=== PATIENT | male | born 1995 | race Caucasian/White ===

== ENCOUNTER 2016-07-13 09:18 | Observation (INO) ==
[2016-07-13] MEDS ORDERED: 0.9 % Sodium Chloride 1,000 ML IV ONE ×2 (09:46→11:03)
[2016-07-13] MEDS ORDERED: Ondansetron 4 MG/2 ML VIAL IV ONE (09:46)
[2016-07-13] MEDS ORDERED: Insulin Regular, Human 100 UNIT/ML IV ONE (09:48)
--- NOTE | 2016-07-13 09:50 | Emergency Department Note ---
Disposition Clinical Impression: DKA (diabetic ketoacidoses) Qualifiers: Diabetes mellitus type: type 1 Diabetes mellitus complication detail: without coma Qualified Code(s): E10.10 - Type 1 diabetes mellitus with ketoacidosis without coma Disposition: Admitted As Inpatient Condition: Fair Referrals: Zheng Burt MD [Primary Care Provider] - Forms: ED Satisfaction Letter Time of Disposition: 13:08 General Adult HPI - General Chief complaint: ED Nausea/Vomiting/Diarrhea Time Seen by Provider: 07/13/16 09:45 Source: patient, family Limitations: no limitations Nursing Notes Reviewed: Yes Vital Signs Reviewed: Yes - History of Present Illness HPI Narrative: 20-year-old with a history of nausea vomiting. This started 6 hours prior to presentation. His mother took his Accu-Chek and it was over 500. Patient is a history of DKA multiple times due to noncompliance. He complains of abdominal cramping. Pain Scale: 0 - Related Data Home Medications Medication Instructions Recorded Confirmed Insulin ASPART [NovoLOG] 0 unit SQ TIDWM 07/13/16 07/13/16 Insulin Glargine [Lantus] 48 unit SQ HS 07/13/16 07/13/16 Allergies Allergy/AdvReac Type Severity Reaction Status Date / Time No Known Allergies Allergy Verified 07/13/16 09:35 All systems ED: reviewed and negative except as stated. Constitutional: Denies: fever, chills, weakness, weight change Cardiovascular: Denies: chest pain, palpitations, dyspnea on exertion, edema, syncope Respiratory: Denies: cough, dyspnea, wheezes, hemoptysis, stridor Gastrointestinal: Reports: abdominal pain, nausea, vomiting. Denies: diarrhea, constipation, hematemesis, melena, hematochezia Genitourinary: Reports: frequency. Denies: urgency, dysuria, hematuria Musculoskeletal: Denies: back pain, neck pain, arthralgia, myalgia Integumentary: Denies: rash, abrasion, lesions Neurological: Reports: weakness. Denies: headache, numbness, paresthesias, confusion, abnormal gait, vertigo Psychiatric: Denies: anxiety, depression, suicidal thoughts, homicidal thoughts , auditory hallucinations, visual hallucinations Past Medical History - Past Medical History Medical history: Reports: other Psychiatric history: Reports: no psych history - Social History Smoking Status: Current every day smoker Smokeless Tobacco Status: No Alcohol use: Reports: none Drug use: Reports: none Physical Exam - General Limitations: no limitations General appearance: alert, in no apparent distress - Eye Eye exam: Present: normal appearance, PERRL, EOMI - ENT ENT exam: mucous membranes dry - Neck Neck exam: Present: normal inspection, full ROM, trachea midline. Absent: meningismus - Respiratory Respiratory exam: Present: normal lung sounds bilaterally - Cardiovascular Cardiovascular exam: Present: regular rate, normal rhythm, normal heart sounds - Abdominal Exam Abdominal exam: Present: soft, tenderness, normal bowel sounds. Absent: distention, guarding, rebound, rigidity Abdominal tenderness: Present: diffuse - Extremities Exam Extremities exam: Present: normal inspection, full ROM. Absent: tenderness, pedal edema - Expanded Lower Extremity Exam Neurovascular/Tendon exam: Absent: motor deficit, sensory deficit, tendon deficit - Back Exam Back exam: Present: normal inspection, full ROM. Absent: tenderness - Neurological Exam Neurological exam: Present: alert, oriented X3 - Psychiatric Psychiatric exam: Present: normal affect, normal mood - Skin Skin exam: Present: warm, dry, intact, normal color Course Vital Signs Temperature 98.9 F 07/13/16 09:20 Pulse Rate 106 07/13/16 09:20 Respiratory Rate 20 07/13/16 09:20 Blood Pressure 119/56 07/13/16 09:20 O2 Sat by Pulse Oximetry 99 07/13/16 09:20 Temperature 98.9 F 07/13/16 09:20 Pulse Rate 94 07/13/16 11:20 Respiratory Rate 20 07/13/16 11:20 Blood Pressure 117/57 07/13/16 11:20 O2 Sat by Pulse Oximetry 99 07/13/16 11:20 Oxygen Delivery Oxygen Delivery Room Air Medical Decision Making - [facility] Narrative Medical decision making narrative: Diagnosis DKA ED course patient was given 0.9 normal saline 1000 mL bolus 2 L. Insulin R7 units bolus given. Insulin drip initiated. Repeat Chem-7 was done twice. On the third Chem-7, his blood glucose has not dropped to 200s. However he was still acidotic in terms of his bicarbonate. Patient agreed to continue with IV fluids and insulin drip. - Lab Data Lab results reviewed: Yes I reviewed the patient's lab results. Result diagrams: 07/13/16 09:49 07/13/16 12:30 Lab Results 07/13/16 07/13/16 07/13/16 Range/Units 09:30 09:49 09:49 WBC 18.1 H (4.3-11.1) K/mcL RBC 5.79 H (4.19-5.50) M/mcL Hgb 17.0 H (12.9-16.9) g/dL Hct 50.1 (37.5-50.1) % MCV 86.5 (83.0-100.0) fL MCH 29.4 (28.0-33.3) pg MCHC 33.9 (31.6-35.5) g/dL RDW 12.3 (11.5-14.5) % Plt Count 337 (140-400) K/mcL MPV 11.7 (9.4-12.4) fL Immature Gran % 1.3 (0-4) % Seg Neutrophils % 89.6 % Lymphocytes % 6.1 % Monocytes % 2.4 % Eosinophils % 0.1 % Basophils % 0.5 % Neutrophils # 16.2 H (1.6-8.9) K/mcL Lymphocytes # 1.1 (0.6-4.6) K/mcL Monocytes # 0.4 (0.0-1.3) K/mcL Eosinophils # 0.0 (0.0-0.6) K/mcL Basophils # 0.1 (0.0-0.2) K/mcL Sodium (136-145) mEq/L Potassium (3.5-4.5) mEq/L Chloride (98-109) mEq/L Carbon Dioxide (19-29) mEq/L BUN (8-26) mg/dL Creatinine (0.72-1.25) mg/dL Est GFR ( Amer) (> 60) Est GFR (Non-Af Amer) (> 60) BUN/Creatinine Ratio (6-26) Glucose (70-99) mg/dL POC Glucose 552 H* (58-89) Calculated Osmolality (280-300) Calcium (8.6-10.8) mg/dL Total Bilirubin (0.2-1.2) mg/dL AST (5-34) Units/L ALT (0-55) Units/L Alkaline Phosphatase (38-126) Units/L Serum Total Protein (6.0-8.3) g/dL Albumin (3.5-5.0) g/dL Globulin (2.4-3.5) g/dL Albumin/Globulin Ratio (1.1-2.2) Urine Color Yellow (Yellow) Urine Clarity Clear (Clear) Urine pH 5.5 (5.0-8.0) pH Units Ur Specific [place] 1.025 (1.010-1.025) Urine Protein 30 H (Neg-Trace) mg/dL Urine Glucose (UA) 500 H (Normal) mg/dL Urine Ketones >=160 H (Negative) mg/dL Urine Blood Trace-lysed H (Negative) Urine Nitrite Negative (Negative) Urine Bilirubin Negative (Negative) Urine Urobilinogen Normal (Normal) mg/dL Ur Leukocyte Esterase Negative (Negative) Urine Microscopic WBC Test Not Performed Ur Squamous Epith Cells Few (None-Few) per lpf Ur Culture Indicated? NO (NO) Urine Opiates Screen (Ndlcit=600) ng/mL Ur Barbiturates Screen (Gqxdlp=648) ng/mL Ur Phencyclidine Scrn (Cutoff=25) ng/mL Ur Amphetamines Screen (Mlfpaw=4611) ng/mL U Benzodiazepines Scrn (Hriila=319) ng/mL Urine Cocaine Screen (Cutoff= 300) ng/mL U Marijuana (THC) Screen (Cutoff = 50) ng/mL 07/13/16 07/13/16 07/13/16 Range/Units 09:49 09:49 11:28 WBC (4.3-11.1) K/mcL RBC (4.19-5.50) M/mcL Hgb (12.9-16.9) g/dL Hct (37.5-50.1) % MCV (83.0-100.0) fL MCH (28.0-33.3) pg MCHC (31.6-35.5) g/dL RDW (11.5-14.5) % Plt Count (140-400) K/mcL MPV (9.4-12.4) fL Immature Gran % (0-4) % Seg Neutrophils % % Lymphocytes % % Monocytes % % Eosinophils % % Basophils % % Neutrophils # (1.6-8.9) K/mcL Lymphocytes # (0.6-4.6) K/mcL Monocytes # (0.0-1.3) K/mcL Eosinophils # (0.0-0.6) K/mcL Basophils # (0.0-0.2) K/mcL Sodium 136 141 (136-145) mEq/L Potassium 5.0 H 6.0 H D (3.5-4.5) mEq/L Chloride 95 L 107 (98-109) mEq/L Carbon Dioxide 10 L* 10 L* (19-29) mEq/L BUN 26 26 (8-26) mg/dL Creatinine 1.96 H 1.67 H (0.72-1.25) mg/dL Est GFR ( Amer) 53 L > 60 (> 60) Est GFR (Non-Af Amer) 44 L 53 L (> 60) BUN/Creatinine Ratio 13 16 (6-26) Glucose 652 H* 429 H (70-99) mg/dL POC Glucose (58-89) Calculated Osmolality 318 H 315 H (280-300) Calcium 10.4 9.8 (8.6-10.8) mg/dL Total Bilirubin 0.6 (0.2-1.2) mg/dL AST 21 (5-34) Units/L ALT 24 (0-55) Units/L Alkaline Phosphatase 164 H (38-126) Units/L Serum Total Protein 8.3 (6.0-8.3) g/dL Albumin 5.0 (3.5-5.0) g/dL Globulin 3.3 (2.4-3.5) g/dL Albumin/Globulin Ratio 1.5 (1.1-2.2) Urine Color (Yellow) Urine Clarity (Clear) Urine pH (5.0-8.0) pH Units Ur Specific [place] (1.010-1.025) Urine Protein (Neg-Trace) mg/dL Urine Glucose (UA) (Normal) mg/dL Urine Ketones (Negative) mg/dL Urine Blood (Negative) Urine Nitrite (Negative) Urine Bilirubin (Negative) Urine Urobilinogen (Normal) mg/dL Ur Leukocyte Esterase (Negative) Urine Microscopic WBC Ur Squamous Epith Cells (None-Few) per lpf Ur Culture Indicated? (NO) Urine Opiates Screen Negative (Lrbjhc=485) ng/mL Ur Barbiturates Screen Negative (Xsvjbm=682) ng/mL Ur Phencyclidine Scrn Negative (Cutoff=25) ng/mL Ur Amphetamines Screen Negative (Mrsdij=3186) ng/mL U Benzodiazepines Scrn Negative (Bpawmz=024) ng/mL Urine Cocaine Screen Positive H (Cutoff= 300) ng/mL U Marijuana (THC) Screen Positive H (Cutoff = 50) ng/mL 07/13/16 Range/Units 12:30 WBC (4.3-11.1) K/mcL RBC (4.19-5.50) M/mcL Hgb (12.9-16.9) g/dL Hct (37.5-50.1) % MCV (83.0-100.0) fL MCH (28.0-33.3) pg MCHC (31.6-35.5) g/dL RDW (11.5-14.5) % Plt Count (140-400) K/mcL MPV (9.4-12.4) fL Immature Gran % (0-4) % Seg Neutrophils % % Lymphocytes % % Monocytes % % Eosinophils % % Basophils % % Neutrophils # (1.6-8.9) K/mcL Lymphocytes # (0.6-4.6) K/mcL Monocytes # (0.0-1.3) K/mcL Eosinophils # (0.0-0.6) K/mcL Basophils # (0.0-0.2) K/mcL Sodium 141 (136-145) mEq/L Potassium 4.6 H D (3.5-4.5) mEq/L Chloride 109 (98-109) mEq/L Carbon Dioxide 10 L* (19-29) mEq/L BUN 24 (8-26) mg/dL Creatinine 1.47 H (0.72-1.25) mg/dL Est GFR ( Amer) > 60 (> 60) Est GFR (Non-Af Amer) > 60 (> 60) BUN/Creatinine Ratio 16 (6-26) Glucose 299 H (70-99) mg/dL POC Glucose (58-89) Calculated Osmolality 307 H (280-300) Calcium 9.0 (8.6-10.8) mg/dL Total Bilirubin (0.2-1.2) mg/dL AST (5-34) Units/L ALT (0-55) Units/L Alkaline Phosphatase (38-126) Units/L Serum Total Protein (6.0-8.3) g/dL Albumin (3.5-5.0) g/dL Globulin (2.4-3.5) g/dL Albumin/Globulin Ratio (1.1-2.2) Urine Color (Yellow) Urine Clarity (Clear) Urine pH (5.0-8.0) pH Units Ur Specific [place] (1.010-1.025) Urine Protein (Neg-Trace) mg/dL Urine Glucose (UA) (Normal) mg/dL Urine Ketones (Negative) mg/dL Urine Blood (Negative) Urine Nitrite (Negative) Urine Bilirubin (Negative) Urine Urobilinogen (Normal) mg/dL Ur Leukocyte Esterase (Negative) Urine Microscopic WBC Ur Squamous Epith Cells (None-Few) per lpf Ur Culture Indicated? (NO) Urine Opiates Screen (Nzzbwt=391) ng/mL Ur Barbiturates Screen (Qzybvh=468) ng/mL Ur Phencyclidine Scrn (Cutoff=25) ng/mL Ur Amphetamines Screen (Dcmjtu=7905) ng/mL U Benzodiazepines Scrn (Cldmni=639) ng/mL Urine Cocaine Screen (Cutoff= 300) ng/mL U Marijuana (THC) Screen (Cutoff = 50) ng/mL
[2016-07-13] MEDS ORDERED: 0.9 % Sodium Chloride Mini Bag 100 ML ONE (09:58)
[2016-07-13] MEDS ORDERED: Insulin Human Regular 100 UNIT in 0.9 % Sodium Chloride 100 ML IVC SCH ×3 (10:00→15:00)
[2016-07-13 10:01] LABS: Bilirubin,Urine Negative (Negative); Blood,Urine Trace-lysed (Negative); Clarity,Urine Clear (Clear); Color,Urine Yellow (Yellow); Glucose,Urine (UA) 500 mg/dL (Normal); Ketones,Urine >=160 mg/dL (Negative); Leukocyte Esterase,Urine Negative (Negative); Nitrite,Urine Negative (Negative); PH,Urine 5.5 pH Units (5.0-8.0); Protein,Urine 30 mg/dL (Neg-Trace); Specific Gravity,Urine 1.025 (1.010-1.025); Urobilinogen,Urine Normal (Normal)
[2016-07-13 10:08] LABS: Albumin/Globulin Ratio 1.5 (1.1-2.2); Bilirubin,Total 0.6 mg/dL (0.2-1.2); Calcium 10.4 mg/dL (8.6-10.8); Globulin 3.3 g/dL (2.4-3.5); Total Protein 8.3 g/dL (6.0-8.3)
[2016-07-13 10:18] LABS: Basophils # 0.1 K/mcL (0.0-0.2); Basophils % 0.5 %; Eosinophils % 0.1 %; Hematocrit 50.1 % (37.5-50.1); Immature Granulocytes % 1.3 % (0-4); Lymphocytes # 1.1 K/mcL (0.6-4.6); Lymphocytes % 6.1 %; Mean Corpuscular HGB Conc 33.9 g/dL (31.6-35.5); Mean Corpuscular Hemoglobin 29.4 pg (28.0-33.3); Mean Corpuscular Volume 86.5 fL (83.0-100.0); Mean Platelet Volume 11.7 fL (9.4-12.4); Monocytes # 0.4 K/mcL (0.0-1.3); Monocytes % 2.4 %; Neutrophils # 16.2 K/mcL (1.6-8.9); Platelet Count 337 K/mcL (140-400); Red Blood Count 5.79 M/mcL (4.19-5.50); Red Cell Distribution Width 12.3 % (11.5-14.5); Segmented Neutrophils % 89.6 %
[2016-07-13 10:32] LABS: Amphetamine Screen,Urine Negative ng/mL (Cutoff=1000); Barbiturate Screen,Urine Negative ng/mL (Cutoff=200); Benzodiazepines Screen,Urine Negative ng/mL (Cutoff=200); Cannabinoid Screen,Urine Positive ng/mL (Cutoff = 50); Cocaine Screen,Urine Positive ng/mL (Cutoff= 300); Opiate Screen,Urine Negative ng/mL (Cutoff=300); Phencyclidine Screen,Urine Negative ng/mL (Cutoff=25)
[2016-07-13 10:41] LABS: Squamous Epithelial Cell,Urine Few per lpf (None-Few)
[2016-07-13 11:47] LABS: BUN/Creatinine Ratio 16 (6-26); Blood Urea Nitrogen 26 mg/dL (8-26); Calcium 9.8 mg/dL (8.6-10.8); Chloride 107 mEq/L (98-109); Glucose 429 mg/dL (70-99); Osmolality,Calculated 315 (280-300); Sodium 141 mEq/L (136-145); eGFR For African Americans > 60 (> 60); eGFR For Non-African Americans 53 (> 60)
[2016-07-13 11:51] LABS: Carbon Dioxide 10 mEq/L (19-29)
[2016-07-13 12:48] LABS: BUN/Creatinine Ratio 16 (6-26); Blood Urea Nitrogen 24 mg/dL (8-26); Carbon Dioxide 10 mEq/L (19-29); Chloride 109 mEq/L (98-109); Glucose 299 mg/dL (70-99); Osmolality,Calculated 307 (280-300); Potassium 4.6 mEq/L (3.5-4.5); Sodium 141 mEq/L (136-145); eGFR For African Americans > 60 (> 60); eGFR For Non-African Americans > 60 (> 60)
[2016-07-13] MEDS ORDERED: *HR* Dextrose 50 % in Water (Syg) 50 ML SYRINGE IVP PRN ×3 (13:10→14:51)
[2016-07-13] MEDS ORDERED: Ondansetron 4 MG/2 ML VIAL IVP PRN ×2 (13:10→13:18)
[2016-07-13] MEDS ORDERED: 0.9 % Sodium Chloride 1,000 ML IV SCH ×2 (13:15→13:18)
[2016-07-13] MEDS ORDERED: D5% in 0.45% NACL 1,000 ML IVC PRN (14:51)
[2016-07-13] MEDS ORDERED: D5% in 0.45% NACL w KCl 20 MEQ/1,000 ML MLS IVC PRN (14:51)
[2016-07-13] MEDS ORDERED: Insulin Regular, Human 100 UNIT/ML IV PRN (14:51)
[2016-07-13] MEDS ORDERED: D5% in 0.9% NACL 1,000 ML IVC SCH (15:00)
[2016-07-13 16:23] VITALS: BP 112/64
== END 2016-07-13 16:50 | disposition other institution (70) ==
LOC: INPGRE 09:18 → EMEROOGRE 09:18 → INPGRE 13:40
PROVIDERS: ADMIT Internal Medicine; ATTEND Internal Medicine